=== PATIENT | female | born 1955 | race Caucasian/White ===

== ENCOUNTER 2021-08-17 11:31 | Inpatient (IN) | payer MEDICARE, OTHER ==
[~2021-08-17] VITALS: Ht 167.6 cm; Wt 103.9 kg
[2021-08-17 12:27] LABS: HEMOGLOBIN 13.6 gm/dl (12.3-15.3); RED BLOOD COUNT 4.34 M/UL (4.00-5.10); WHITE BLOOD COUNT 6.4 K/UL (4.5-11.0)
[2021-08-17 12:58] LABS: BUN/CREATININE RATIO 13 (0-10)
[2021-08-17] MEDS ORDERED: IBUPROFEN800 MG PO (16:52)
[2021-08-17] MEDS ORDERED: PROTONIX 40 MG40 M1 PO (16:53)
[2021-08-17] MEDS ORDERED: PROVENTIL HFA6.7 GM INH (16:53)
[2021-08-18 01:29] LABS: HEMOGLOBIN 12.3 gm/dl (12.3-15.3); RED BLOOD COUNT 3.94 M/UL (4.00-5.10)
[2021-08-18 01:34] LABS: WHITE BLOOD COUNT 4.7 K/UL (4.5-11.0)
[2021-08-18 02:03] LABS: BUN/CREATININE RATIO 19 (0-10)
[2021-08-19 06:23] LABS: HEMOGLOBIN 11.5 gm/dl (12.3-15.3); RED BLOOD COUNT 3.72 M/UL (4.00-5.10)
[2021-08-19 06:28] LABS: WHITE BLOOD COUNT 3.3 K/UL (4.5-11.0)
[2021-08-19 06:38] LABS: BUN/CREATININE RATIO 16 (0-10)
[2021-08-19] MEDS ORDERED: HUMALOG 10100 UNITS/ SC (12:51)
[2021-08-19] MEDS ORDERED: LANTUS INS100 UTS/M1 SQ (12:51)
[2021-08-19] MEDS ORDERED: LEVEMIR100 UNIT/1 SQ (14:37)
[2021-08-19] MEDS ORDERED: BUDESONIDE0.5 MG/2 M NEB (14:37)
[2021-08-19] MEDS ORDERED: ASPIRIN EC81 MG PO (14:37)
[2021-08-19] MEDS ORDERED: NOVOLOG100 UNIT/1 SC (14:37)
[2021-08-19] MEDS ORDERED: ISOSORBIDE MONO30 MG PO (14:37)
[2021-08-19] MEDS ORDERED: NICOTINE PATCH1 EAC2 TOP (14:37)
[2021-08-19] MEDS ORDERED: IPRAT-ALBUT 0.5-3 ML NEB (14:37)
[2021-08-19] MEDS ORDERED: ATORVASTATIN CA20 MG PO (14:37)
[2021-08-19] MEDS ORDERED: LEVOFLOXACIN750 MG PO (14:56)
[2021-08-19] MEDS ORDERED: MUCINEX600 MG PO (14:56)
[2021-08-19] MEDS ORDERED: TAMIFLU 75 MG C75 MG PO (14:56)
== END 2021-08-19 16:20 | disposition home or self-care (01) | DRG 194 ==
LOC: ER1 11:31 → CCU 13:44 → M/S 13:44 → CDU 13:44 → CCU 15:02 → M/S 08-18 20:00
PROVIDERS: Nurse Practitioner; Physician Assistant; ADMIT Internal Medicine
PROC: B24BZZZ Ultrasonography of Heart with Aorta (ICD-10-PCS; principal; 2021-08-18)
DX: J10.08 Influenza due to other identified influenza virus with other specified pneumonia (principal); E87.2 Acidosis; Z20.822 Contact with and (suspected) exposure to COVID-19; E78.5 Hyperlipidemia, unspecified; D69.6 Thrombocytopenia, unspecified; E66.01 Morbid (severe) obesity due to excess calories; I10 Essential (primary) hypertension; I20.9 Angina pectoris, unspecified; E86.0 Dehydration; E11.65 Type 2 diabetes mellitus with hyperglycemia; F17.200 Nicotine dependence, unspecified, uncomplicated; E87.6 Hypokalemia; Z96.619 Presence of unspecified artificial shoulder joint; K22.70 Barrett's esophagus without dysplasia; Z88.0 Allergy status to penicillin; Z88.5 Allergy status to narcotic agent; Z82.49 Family history of ischemic heart disease and other diseases of the circulatory system; Z83.3 Family history of diabetes mellitus; Z91.14 Patient's other noncompliance with medication regimen; Z79.4 Long term (current) use of insulin; Z79.82 Long term (current) use of aspirin; Z79.899 Other long term (current) drug therapy; Z90.49 Acquired absence of other specified parts of digestive tract; Z90.710 Acquired absence of both cervix and uterus; Z68.31 Body mass index [BMI] 31.0-31.9, adult
CPT/HCPCS: ECHO; 0240U; 36415; 36600; 71045; 80053; 80061; 81001; 82009; 82150; 82550; 82553; 82803; 82962; 83036; 83605; 83690; 83735; 83880; 84132; 84484; 85025; 85027; 85652; 86140; 87040; 93306; 94640; 94664; 94760; 96374; 96375; 99285; J0456; J0696; J1644; J2405; J3475; J7030; J7040